=== PATIENT | female | born 2000 | race Caucasian/White ===

== ENCOUNTER 2020-05-14 17:01 | Emergency (ER) | payer OTHER ==
[2020-05-14 17:23] VITALS: RESP 18
[2020-05-14] MEDS ORDERED: ONDANSETRON 4 MG/2 ML VIAL IVP STA (18:03)
[2020-05-14] MEDS ORDERED: SODIUM CHLORIDE 0.9% 1,000 ML IV STA (18:03)
--- NOTE | 2020-05-14 18:10 | ED ---
Abdominal Pain HPI - General Chief Complaint: Abdominal Pain Stated Complaint: Abd Pain Time Seen by Provider: 05/14/20 17:34 Source: patient Mode of arrival: ambulatory Limitations: no limitations - History of Present Illness Initial Comments: 19-year-old female patient presents to the emergency department today for evaluation of right-sided abdominal pain. Patient states that symptoms started around 4:00 this morning and have been gradually worsening. States that she did take Tylenol shortly after onset which did seem to help for a short period of time. Patient states that she has been feeling very nauseated but has not yet had vomiting. Denies any diarrhea but states she has had some constipation. Denies any hematochezia or melena. She denies any fever or chills. States that she has had in the past but no other abdominal surgeries. Denies any hematuria, dysuria, urinary frequency, urinary urgency. She denies any abnormal vaginal bleeding or discharge. Patient denies any recent rash, cough, shortness of breath, chest pain, back pain, numbness, tingling, dizziness, weakness, headache, visual changes, or any other complaints. - Related Data Home Medications Medication Instructions Recorded Confirmed Pnv No.95/Ferrous Fum/Folic AC 1 each PO DAILY 09/05/19 09/05/19 [ Multivitamin Tablet] Allergies Allergy/AdvReac Type Severity Reaction Status Date / Time codeine AdvReac Hallucinati Verified 05/14/20 17:20 ons Review of Systems ROS Statement: Those systems with pertinent positive or pertinent negative responses have been documented in the HPI. ROS Other: All systems not noted in ROS Statement are negative. Past Medical History Past Medical History: No Reported History History of Any Multi-Drug Resistant Organisms: None Reported Past Surgical History: Section Past Anesthesia/Blood Transfusion Reactions: No Reported Reaction Past Psychological History: No Psychological Hx Reported Smoking Status: Never smoker Past Alcohol Use History: None Reported Past Drug Use History: None Reported - Past Family History Father Family Medical History: No Reported History General Exam Limitations: no limitations General appearance: alert, in no apparent distress, other (Physical well- developed, well-nourished adult female patient in no acute distress. Vital signs upon presentation are temperature 98.1F, pulse 105, respirations 18, blood pressure 132/89, pulse ox 99% on room air.) Eye exam: Present: normal appearance, PERRL, EOMI. Absent: scleral icterus, conjunctival injection, periorbital swelling ENT exam: Present: normal exam, normal oropharynx, mucous membranes moist Respiratory exam: Present: normal lung sounds bilaterally. Absent: respiratory distress, wheezes, rales, rhonchi, stridor Cardiovascular Exam: Present: regular rate, normal rhythm, normal heart sounds. Absent: systolic murmur, diastolic murmur, rubs, gallop, clicks GI/Abdominal exam: Present: soft, tenderness (Right mid abdomen right lower quadrant tenderness), normal bowel sounds. Absent: distended, guarding, rebound, rigid Neurological exam: Present: alert, oriented X3, CN II-XII intact Psychiatric exam: Present: normal affect, normal mood Skin exam: Present: warm, dry, intact, normal color. Absent: rash Course Vital Signs 05/14/20 05/14/20 17:20 19:53 Temperature 98.1 F Pulse Rate 105 H 83 Respiratory 18 18 Rate Blood Pressure 132/89 140/81 O2 Sat by Pulse 99 99 Oximetry Medical Decision Making - Medical Decision Making 19-year-old female patient presents to the emergency department today for evaluation of right-sided abdominal pain. Physical examination did reveal right mid and right lower quadrant abdominal tenderness. She is afebrile normal vital signs. Labs reviewed and did reveal elevated white blood cell count at 20.4. Urinalysis showed no evidence for infection. CT of the abdomen and pelvis was obtained and showed enlarged lymph nodes near the pericecal region. Appendix appeared normal. No sign for appendicitis. There is some decreased size of the left kidney and enlarged calyces which could be related to a developmental abnormality or papillary necrosis. I did discuss these findings and results with the patient. I did offer to perform pelvic exam and obtained cultures for further investigation of her symptoms. Patient declined at this time, she denies concern for STIs or PID. We did discuss mesenteric adenitis versus early appendicitis as a cause for her symptoms and lab findings. We also discussed the abnormality in her kidney. She will be discharged at this time with instructions to closely monitor for worsening symptoms including development of fever, vomiting, or worsening abdominal pain. She was also instructed to follow-up with her primary care physician for further evaluation to have repeat labs drawn to ensure reduction and white blood cell count as well as to request further investigation to her kidney abnormalities. She'll be given a starter pack for Zofran. She is instructed take Tylenol Motrin for discomfort. Return parameters were discussed in detail. She verbalizes understanding and agrees with this plan. - Lab Data Result diagrams: 05/14/20 18:23 05/14/20 18:23 Lab Results 05/14/20 05/14/20 05/14/20 Range/Units 18:23 18:23 18:23 WBC 20.4 H (4.0-11.0) k/uL RBC 5.10 (3.80-5.40) m/uL Hgb 13.3 (11.4-16.0) gm/dL Hct 40.1 (34.0-46.0) % MCV 78.6 L (80.0-100.0) fL MCH 26.2 (25.0-35.0) pg MCHC 33.3 (31.0-37.0) g/dL RDW 13.8 (11.5-15.5) % Plt Count 353 (150-450) k/uL Neutrophils % 82 % Lymphocytes % 11 % Monocytes % 5 % Eosinophils % 1 % Basophils % 0 % Neutrophils # 16.7 H (1.3-7.7) k/uL Lymphocytes # 2.3 (1.0-4.8) k/uL Monocytes # 1.0 (0-1.0) k/uL Eosinophils # 0.1 (0-0.7) k/uL Basophils # 0.1 (0-0.2) k/uL Sodium (137-145) mmol/L Potassium (3.5-5.1) mmol/L Chloride (98-107) mmol/L Carbon Dioxide (22-30) mmol/L Anion Gap mmol/L BUN (7-17) mg/dL Creatinine (0.52-1.04) mg/dL Est GFR (CKD-EPI)AfAm (>60 ml/min/1.73 sqM) Est GFR (CKD-EPI)NonAf (>60 ml/min/1.73 sqM) Glucose (74-99) mg/dL Plasma Lactic Acid Alexys (0.7-2.0) mmol/L Calcium (8.4-10.2) mg/dL Total Bilirubin (0.2-1.3) mg/dL AST (14-36) U/L ALT (4-34) U/L Alkaline Phosphatase (38-126) U/L Total Protein (6.3-8.2) g/dL Albumin (3.5-5.0) g/dL Amylase (30-110) U/L Lipase (23-300) U/L Urine Color Yellow Urine Appearance Clear (Clear) Urine pH 6.5 (5.0-8.0) Ur Specific [place] 1.029 (1.001-1.035) Urine Protein Trace H (Negative) Urine Glucose (UA) Negative (Negative) Urine Ketones Negative (Negative) Urine Blood Negative (Negative) Urine Nitrite Negative (Negative) Urine Bilirubin Negative (Negative) Urine Urobilinogen <2.0 (<2.0) mg/dL Ur Leukocyte Esterase Negative (Negative) Urine HCG, Qual Not Detected (Not Detectd) 05/14/20 05/14/20 Range/Units 18:23 18:23 WBC (4.0-11.0) k/uL RBC (3.80-5.40) m/uL Hgb (11.4-16.0) gm/dL Hct (34.0-46.0) % MCV (80.0-100.0) fL MCH (25.0-35.0) pg MCHC (31.0-37.0) g/dL RDW (11.5-15.5) % Plt Count (150-450) k/uL Neutrophils % % Lymphocytes % % Monocytes % % Eosinophils % % Basophils % % Neutrophils # (1.3-7.7) k/uL Lymphocytes # (1.0-4.8) k/uL Monocytes # (0-1.0) k/uL Eosinophils # (0-0.7) k/uL Basophils # (0-0.2) k/uL Sodium 138 (137-145) mmol/L Potassium 4.0 (3.5-5.1) mmol/L Chloride 104 (98-107) mmol/L Carbon Dioxide 25 (22-30) mmol/L Anion Gap 9 mmol/L BUN 10 (7-17) mg/dL Creatinine 0.71 (0.52-1.04) mg/dL Est GFR (CKD-EPI)AfAm >90 (>60 ml/min/1.73 sqM) Est GFR (CKD-EPI)NonAf >90 (>60 ml/min/1.73 sqM) Glucose 86 (74-99) mg/dL Plasma Lactic Acid Alexys 1.3 (0.7-2.0) mmol/L Calcium 9.2 (8.4-10.2) mg/dL Total Bilirubin 0.5 (0.2-1.3) mg/dL AST 21 (14-36) U/L ALT 17 (4-34) U/L Alkaline Phosphatase 82 (38-126) U/L Total Protein 6.9 (6.3-8.2) g/dL Albumin 4.1 (3.5-5.0) g/dL Amylase 40 (30-110) U/L Lipase 46 (23-300) U/L Urine Color Urine Appearance (Clear) Urine pH (5.0-8.0) Ur Specific [place] (1.001-1.035) Urine Protein (Negative) Urine Glucose (UA) (Negative) Urine Ketones (Negative) Urine Blood (Negative) Urine Nitrite (Negative) Urine Bilirubin (Negative) Urine Urobilinogen (<2.0) mg/dL Ur Leukocyte Esterase (Negative) Urine HCG, Qual (Not Detectd) - Radiology Data Radiology results: report reviewed, image reviewed CT abdomen and pelvis is obtained. Report was reviewed in its entirety. Impression by Dr. Pineda shows some fatty infiltration of the liver. No sign of appendicitis. Left kidney slightly smaller than the right. There are large calyces of the left kidney that could relate to some developmental abnormality. Renal papillary necrosis possible. No renal obstruction seen. Disposition Clinical Impression: Abdominal pain, Leukocytosis, Abnormal finding on diagnostic imaging of left kidney Disposition: HOME SELF-CARE Condition: Good Instructions (If sedation given, give patient instructions): Leukocytosis (ED), Abdominal Pain (ED) Additional Instructions: Take, Motrin for pain control. Take nausea medication as needed. Follow up with the primary care physician for recheck in 1-2 days. If you're pain worsens, he developed a fever, or vomiting return to the emergency department. Please follow-up with your primary care physician and have a repeat white blood cell count drawn to ensure resolution of abnormality. Also, have them evaluate the abnormality of your left kidney. Return for any other new, worsening, or concerning symptoms. Is patient prescribed a controlled substance at d/c from ED?: No Referrals: None,Stated [Primary Care Provider] - 1-2 days Time of Disposition: 20:40
[2020-05-14 18:41] LABS: Basophils # (A) 0.1 k/uL (0-0.2); Basophils % (A) 0 %; Eosinophils # (A) 0.1 k/uL (0-0.7); Eosinophils % (A) 1 %; HCT 40.1 % (34.0-46.0); HGB 13.3 gm/dL (11.4-16.0); Lymphocytes # (A) 2.3 k/uL (1.0-4.8); Lymphocytes % (A) 11 %; MCH 26.2 pg (25.0-35.0); MCHC 33.3 g/dL (31.0-37.0); MCV 78.6 fL (80.0-100.0); Mean Platelet Volume 6.6; Monocytes % (A) 5 %; Neutrophils # (A) 16.7 k/uL (1.3-7.7); Neutrophils % (A) 82 %; Platelet Count 353 k/uL (150-450); RDW 13.8 % (11.5-15.5); WBC 20.4 k/uL (4.0-11.0)
[2020-05-14 18:43] LABS: Appearance,Urine Clear (Clear); Bilirubin,Urine Negative (Negative); Blood,Urine Negative (Negative); Color,Urine Yellow; Glucose,Urine (UA) Negative (Negative); Ketones,Urine Negative (Negative); Leukocyte Esterase,Urine Negative (Negative); Nitrite,Urine Negative (Negative); PH, Urine 6.5 (5.0-8.0); Protein,Urine Trace (Negative); Specific Gravity,Urine 1.029 (1.001-1.035); Urobilinogen,Urine <2.0 mg/dL (<2.0)
[2020-05-14] MEDS ORDERED: ACETAMINOPHEN TAB 500 MG TAB PO STA (19:01)
[2020-05-14 19:05] LABS: ALT 17 U/L (4-34); AST 21 U/L (14-36); African American GFR (CKD) >90 (>60 ml/min/1.73 sqM); Albumin 4.1 g/dL (3.5-5.0); Alkaline Phosphatase 82 U/L (38-126); Amylase 40 U/L (30-110); Anion Gap 9 mmol/L; Blood Urea Nitrogen 10 mg/dL (7-17); Calcium 9.2 mg/dL (8.4-10.2); Carbon Dioxide 25 mmol/L (22-30); Chloride 104 mmol/L (98-107); Glucose 86 mg/dL (74-99); Non-African American GFR(CKD) >90 (>60 ml/min/1.73 sqM); Sodium 138 mmol/L (137-145); Total Bilirubin 0.5 mg/dL (0.2-1.3); Total Protein 6.9 g/dL (6.3-8.2)
--- NOTE | 2020-05-14 19:46 | CT ---
EXAMINATION TYPE: CT abdomen pelvis w con DATE OF EXAM: 05/14/2020 COMPARISON: None HISTORY: RLQ pain CT DLP: 1854.6 mGycm Automated exposure control for dose reduction was used. CONTRAST: Performed with IV Contrast, patient injected with 100 mL of Isovue 300. Lung bases are clear. There is no pleural effusion. Heart size is normal. There is some fatty infiltr ation of the liver. There is no pericardial effusion. Bile ducts are not dilated. Gallbladder appears normal. Spleen is intact. Stomach is intact. There is no pancreatic mass. There is no adrenal mass. Kidneys show satisfactory contrast opacification. There is no hydronephrosi s. Left kidney is smaller than the right. There is normal excretion on the delayed images. There is n o retroperitoneal adenopathy. Ureters are not dilated. Bladder distends smoothly. Uterus is anteverted. There is no inguinal hernia. There is no evidence of a pelvic mass. There is no free fluid in the pelvis. There are pericecal lymph nodes that measure up to 1 cm. Appendix is medial and is within normal limi ts. There is some air bubbles in the distal appendix. Appendix measures up to 7 mm. Lumbar vertebra have normal alignment. Disc spaces are fairly normal. There is no compression fractur e. Bony pelvis is intact. Hip joints are intact. IMPRESSION: There is some fatty infiltration of the liver. No sign of appendicitis. Left kidney slightly smaller than the right. There are large calyces of the left kidney that could relate to some developmental ab normality. Renal papillary necrosis is possible. No renal obstruction seen.
[2020-05-14] MEDS ORDERED: ONDANSETRON 4 MG ODT STARTER PACK 2 TAB BTL PO STA (20:40)
[2020-05-14 21:35] VITALS: BP 122/81; PULSE 94; TEMP 98.6
== END 2020-05-14 21:20 | disposition home or self-care (01) ==
LOC: EC 17:01
DX: R93.422 Abnormal radiologic findings on diagnostic imaging of left kidney (principal); D72.829 Elevated white blood cell count, unspecified; R10.9 Unspecified abdominal pain; R59.9 Enlarged lymph nodes, unspecified; Z88.5 Allergy status to narcotic agent; Z98.890 Other specified postprocedural states
CPT/HCPCS: 36415; 80053; 82150; 83605; 83690; 85025; 81003; 81025; 74177; 99284; 96374; 96361; J2405; S0119; Q9967

== ENCOUNTER 2021-10-06 17:03 | Emergency (ER) | payer OTHER ==
[2021-10-06 18:27] VITALS: BP 160/97; PULSE 93; RESP 20; TEMP 97.8
[2021-10-06 18:58] LABS: Appearance,Urine Clear (Clear); Bacteria,Urine Rare /hpf; Bilirubin,Urine Negative (Negative); Blood,Urine Negative (Negative); Color,Urine Colorless; Glucose,Urine (UA) Negative (Negative); Hyaline Casts,Urine 1 /lpf (0-2); Ketones,Urine Negative (Negative); Leukocyte Esterase,Urine Trace (Negative); Nitrite,Urine Negative (Negative); Protein,Urine Negative (Negative); RBC,Urine <1 /hpf (0-5); Specific Gravity,Urine 1.002 (1.001-1.035); Squamous Epithelial Cell,Urine 1 /hpf (0-4); Urobilinogen,Urine <2.0 mg/dL (<2.0); WBC,Urine 1 /hpf (0-5)
[2021-10-06 19:26] LABS: Basophils # (A) 0.1 k/uL (0-0.2); Basophils % (A) 1 %; Eosinophils # (A) 0.1 k/uL (0-0.7); Eosinophils % (A) 1 %; HCT 41.9 % (34.0-46.0); HGB 13.9 gm/dL (11.4-16.0); Lymphocytes % (A) 13 %; MCH 28.2 pg (25.0-35.0); MCHC 33.3 g/dL (31.0-37.0); MCV 84.8 fL (80.0-100.0); Mean Platelet Volume 6.6; Monocytes # (A) 0.6 k/uL (0-1.0); Monocytes % (A) 4 %; Neutrophils % (A) 81 %; Platelet Count 363 k/uL (150-450); RBC 4.94 m/uL (3.80-5.40); RDW 13.3 % (11.5-15.5)
[2021-10-06 19:35] LABS: ALT 19 U/L (4-34); AST 21 U/L (14-36); African American GFR (CKD) >90 (>60 ml/min/1.73 sqM); Albumin 4.3 g/dL (3.5-5.0); Alkaline Phosphatase 61 U/L (38-126); Anion Gap 7 mmol/L; Blood Urea Nitrogen 13 mg/dL (7-17); Calcium 9.1 mg/dL (8.4-10.2); Carbon Dioxide 25 mmol/L (22-30); Chloride 106 mmol/L (98-107); Glucose 90 mg/dL (74-99); Non-African American GFR(CKD) >90 (>60 ml/min/1.73 sqM); Potassium 4.3 mmol/L (3.5-5.1); Sodium 138 mmol/L (137-145); Total Bilirubin 0.4 mg/dL (0.2-1.3); Total Protein 7.4 g/dL (6.3-8.2)
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
== END 2021-10-06 21:53 | disposition home or self-care (01) ==
LOC: EC 17:03
DX: S30.811A Abrasion of abdominal wall, initial encounter (principal); M25.512 Pain in left shoulder; R07.2 Precordial pain; Z88.5 Allergy status to narcotic agent; V43.52XA Car driver injured in collision with other type car in traffic accident, initial encounter; Y92.410 Unspecified street and highway as the place of occurrence of the external cause
CPT/HCPCS: 36415; 71046; 80053; 81001; 81025; 84484; 85025; 93005; 99284

== ENCOUNTER → 2021-11-24 | Outpatient (CLI) | payer OTHER ==
--- NOTE | 2021-11-24 16:05 | US ---
EXAMINATION TYPE: Transabdominal DATE OF EXAM: 11/24/2021 3:21 PM COMPARISON: NONE CLINICAL HISTORY: Z36.87 UNCERTAIN LMP. Confirm Dates EXAM PERFORMED: Transabdominal (TA) EXAM MEASUREMENTS: GESTATIONAL AGE / DATING Physician Established: (9 weeks/5 days) EDC: 06/24/2022 Dates by LMP: (9 weeks/5 days) EDC: 06/24/2022 Dates by First Scan: No previous this is first scan Dates by Current Scan for: (10 weeks/0 days) EDC: 06/22/2022 MATERNAL ANATOMY Uterus: 15.9 x 7.7 x 8.2 cm Right Ovary: 2.8 x 2.3 x 1.4 Left Ovary: 3.4 x 3.7 x 2.8 Post CDS / Adnexa: wnl Presence of free fluid: No Presence of corpus luteal cyst: Left Ovary= 2.2 x 1.8 x 1.9 cm Presence of subchorionic bleed: No GESTATION / SURVEY CRL: 3.0 cm (10 weeks/0 days) MSD: wnl Yolk Sac (normal less than 6mm): 5mm Heart Rate: 165 bpm Rhythm: Normal IUP: Viable IUP Date of LMP: 09/17/2021 Single, viable IUP/ No abnormality visualized at this time IMPRESSION: 1. Single intrauterine gestation estimated at 10 weeks 0 days gestation based on crown-rump length. C ardiac activity measures 165 bpm.
== END | disposition home or self-care (01) ==
LOC: RADUSWWP 14:55
PROVIDERS: ATTEND Obstetrics & Gynecology Obstetrics
DX: Z36.87 Encounter for antenatal screening for uncertain dates (principal); Z3A.10 10 weeks gestation of pregnancy
CPT/HCPCS: 76801

== ENCOUNTER 2022-06-09 15:57 | Outpatient (CLI) | payer OTHER ==
[2022-06-09 16:40] VITALS: BP 131/81; PULSE 99; RESP 17; TEMP 98.1
== END 2022-06-09 16:38 | disposition home or self-care (01) ==
LOC: FBPOP 15:57
PROVIDERS: ATTEND Obstetrics & Gynecology Obstetrics
DX: Z36.89 Encounter for other specified antenatal screening (principal); O36.8130 Decreased fetal movements, third trimester, not applicable or unspecified; Z3A.37 37 weeks gestation of pregnancy; Z88.5 Allergy status to narcotic agent
CPT/HCPCS: 59025; G0463; 99213

== ENCOUNTER 2022-06-17 10:02 | Inpatient (IN) | payer OTHER ==
[~2022-06-17 10:02] MED LIST: CITRIC ACID-SODIUM CITRATE 15 ML CUP PO ONE
[2022-06-17] MEDS: LACTATED RINGERS 1,000 ML IV SCH ×4 (10:53→20:12)
[2022-06-17 10:58] LABS: Basophils % (A) 0 %; Eosinophils % (A) 0 %; HCT 34.8 % (34.0-46.0); HGB 11.7 gm/dL (11.4-16.0); Lymphocytes # (A) 1.6 k/uL (1.0-4.8); Lymphocytes % (A) 12 %; MCH 27.6 pg (25.0-35.0); MCHC 33.6 g/dL (31.0-37.0); MCV 82.1 fL (80.0-100.0); Mean Platelet Volume 7.9; Monocytes # (A) 0.5 k/uL (0-1.0); Monocytes % (A) 4 %; Neutrophils # (A) 10.3 k/uL (1.3-7.7); Neutrophils % (A) 82 %; Platelet Count 248 k/uL (150-450); RBC 4.23 m/uL (3.80-5.40); RDW 13.6 % (11.5-15.5); WBC 12.6 k/uL (3.8-10.6)
--- NOTE | 2022-06-17 11:22 | P.HPOB ---
History of Present Illness H&P Date: 06/17/22 Chief Complaint: IUP at 39-0/7 weeks, history of 1 desires repeat This is a 22-year-old at 39 0/7 weeks, estimated due date of 06/24. Patient has a history of a prior and desires repeat. Patient has been receiving routine care which has been essentially uncomplicated. Patient is a known blood type of O+, rubella status immune, B surface antigen negative, HIV negative, RPR nonreactive, group beta strep cultures are negative. Patient does note good movement denies contractions loss of fluid or vaginal bleeding. Review of Systems Constitutional: Denies chills, Denies fatigue, Denies fever Ears, nose, mouth and throat: Denies headache Cardiovascular: Reports leg edema Respiratory: Denies dyspnea Gastrointestinal: Denies constipation, Denies diarrhea, Denies nausea, Denies vomiting Genitourinary: Reports Past Medical History Past Medical History: No Reported History History of Any Multi-Drug Resistant Organisms: None Reported Past Surgical History: Section Past Anesthesia/Blood Transfusion Reactions: No Reported Reaction Smoking Status: Never smoker - Past Family History Father Family Medical History: No Reported History Medications and Allergies Home Medications Medication Instructions Recorded Confirmed Type Pnv No.95/Ferrous Fum/Folic AC 1 each PO DAILY 09/05/19 06/17/22 History [ Multivitamin Tablet] Allergies Allergy/AdvReac Type Severity Reaction Status Date / Time codeine AdvReac Hallucinati Verified 06/09/22 16:15 ons Exam Osteopathic Statement: *. No significant issues noted on an osteopathic structural exam other than those noted in the History and Physical/Consult. 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 Cervical exam is deferred Results Result Diagrams: 06/17/22 10:53 Abnormal Lab Results - Last 24 Hours (Table) 06/17/22 Range/Units 10:53 WBC 12.6 H (3.8-10.6) k/uL Neutrophils # 10.3 H (1.3-7.7) k/uL Assessment and Plan (1) Term Current Visit: Yes Status: Acute Code(s): Z34.90 - ENCNTR FOR SUPRVSN OF NORMAL , UNSP, UNSP TRIMESTER SNOMED Code(s): 00094338 (2) H/O section Current Visit: Yes Status: Acute Code(s): Z98.891 - HISTORY OF UTERINE SCAR FROM PREVIOUS SURGERY SNOMED Code(s): 607490655 Plan: Grade 2-year-old at 39-0/7 weeks presents for repeat section. Patient was counseled on surgery. All questions are answered. Surgical risks are reviewed including but limited to infection, bleeding, damage to bladder, bowel, ureteric or injury. Patient states understanding. We'll proceed to the operating suite for scheduled repeat section.
[2022-06-17] MEDS ORDERED: OXYTOCIN 10 UNIT/ML 1 ML VIAL ONE (11:40)
[2022-06-17] MEDS ORDERED: MORPHINE SULFATE (PF) 0.3 MG/0.3 ML SYR ONE (11:40)
[2022-06-17] MEDS ORDERED: NALBUPHINE 10 MG/ML (1 ML AMP) ONE (11:40)
[2022-06-17] MEDS ORDERED: OXYTOCIN 30 UNITS/500 ML NS BAG IV ONE (11:40)
[2022-06-17] MEDS ORDERED: ONDANSETRON 4 MG/2 ML VIAL ONE (11:40)
--- NOTE | 2022-06-17 12:34 | P.OP ---
Date of Procedure: 06/17/22 Preoperative Diagnosis: IUP at 39 weeks, history of 1, desires repeat Postoperative Diagnosis: Same Procedure(s) Performed: Repeat section Anesthesia: spinal Surgeon: Kaylin Tate Hand Cloth Folder #1: Mari Huston Estimated Blood Loss (ml): 472 IV fluids (ml): 700 Urine output (ml): 250 Pathology: none sent Condition: stable Disposition: observation Indications for Procedure: History of 1, desires repeat Operative Findings: Arcuate uterus appreciated normal ovaries bilaterally. Viable female infant delivered at 1205, weight of 7 lbs. 14 oz., Apgars of 8 and 9 at one and 5 minutes respectively. Description of Procedure: Patient was taken back to the operating suite where spinal anesthesia was found be adequate. She was prepped and draped in normal sterile fashion in the dorsal supine position. Morin catheter was placed under sterile technique. A Pfannenstiel skin incision was made the scalpel and carried through the underlying layer of fascia. The fascia was incised in the midline and the incision was extended laterally. The superior aspect of the fascial incision was then grasped elle clamps, elevated and underlying rectus muscles dissected off sharply. The inferior aspect of the fascial incision was then grasped elle clamps, elevated and underlying rectus muscles dissected off sharply. The rectus muscles were in the midline the peritoneum was identified and entered. Bladder blade was then inserted into the pelvis. The vesicouterine peritoneum was identified and a bladder flap was created using sharp and blunt dissection. The bladder blade was then reinserted the pelvis. Hysterotomy incision was made with the scalpel amniotomy revealed clear fluid. The was encountered in a vertex presentation. The infant was delivered in the usual fashion the umbilical cords doubly clamped and cut. was handed off to awaiting RN. Sponge 80s cry was noted at . Cord blood was then taken. The placenta was then delivered manually intact with a three-vessel cord being noted. Uterus swept of any remaining membranes. The uterine incision was closed with 0 Vicryl in a running locked fashion a second inverting suture was performed. Hemostasis was appreciated. The uterus was returned to the abdomen. The gutters were cleared of all clots and debris. The uterine incision was inspected and hemostasis was appreciated. The rectus muscles were inspected and any points of bleeding were made hemostatic with the Bovie. The fascia was then closed with 0 Vicryl in a running fashion from one lateral edge the midline and the other lateral edge the midline. The subcutaneous tissue was irrigated and any points of bleeding were made hemostatic with Bovie. Subcutaneous tissue was closed with 3-0 Vicryl in a running fashion. Skin was then closed with 4-0 Vicryl in a subcuticular fashion. All counts were noted correct 2 at the end of the procedure. Patient and infant tolerated delivery well and are resting comfortably.
[2022-06-17] MEDS ORDERED: ONDANSETRON 4 MG/2 ML VIAL IVP PRN (13:40)
[2022-06-17] MEDS ORDERED: diphenhydrAMINE 50 MG/ML 1 ML VIAL IVP PRN ×2 (13:40)
[2022-06-17] MEDS ORDERED: METOCLOPRAMIDE 5 MG/ML 2 ML VIAL IVP PRN (13:40)
[2022-06-17] MEDS ORDERED: SIMETHICONE 80 MG CHEWABLE PO PRN (13:40)
[2022-06-17] MEDS ORDERED: diphenhydrAMINE 50 MG CAP PO PRN (13:40)
[2022-06-17] MEDS ORDERED: diphenhydrAMINE 25 MG CAP PO PRN (13:40)
[2022-06-17] MEDS ORDERED: NALOXONE 0.4 MG/ML 1 ML VIAL IV PRN (13:40)
[2022-06-17] MEDS: ACETAMINOPHEN IV (For NPO) 1,000 MG in EMPTY BAG 1 BAG IVPB SCH (14:00)
[2022-06-17] MEDS ORDERED: IBUPROFEN IV 800 MG in SODIUM CHLORIDE 0.9% 250 ML IV PRN (19:00)
[2022-06-17] MEDS: SENNOSIDES-DOCUSATE SODIUM 1 EACH TAB PO SCH (20:11)
[2022-06-18] MEDS: ACETAMINOPHEN IV (For NPO) 1,000 MG in EMPTY BAG 1 BAG IVPB SCH (00:05)
[2022-06-18] MEDS: IBUPROFEN 600 MG TAB PO SCH ×4 (01:16→19:09)
[2022-06-18] MEDS: ACETAMINOPHEN TAB 500 MG TAB PO SCH ×4 (03:00→22:03)
[2022-06-18 07:35] LABS: Basophils % (A) 0 %; Eosinophils % (A) 0 %; HCT 31.8 % (34.0-46.0); HGB 10.7 gm/dL (11.4-16.0); Hypochromasia Slight; Lymphocytes # (A) 2.3 k/uL (1.0-4.8); Lymphocytes % (A) 16 %; MCHC 33.7 g/dL (31.0-37.0); MCV 83.3 fL (80.0-100.0); Mean Platelet Volume 7.9; Monocytes # (A) 0.8 k/uL (0-1.0); Monocytes % (A) 5 %; Neutrophils % (A) 77 %; Platelet Count 219 k/uL (150-450); RBC 3.82 m/uL (3.80-5.40); RDW 13.7 % (11.5-15.5); WBC 14.4 k/uL (3.8-10.6)
--- NOTE | 2022-06-18 08:40 | P.PNOBGPC ---
Subjective - Subjective Principal diagnosis: Postop day 1, repeat section Interval history: Patient is doing well postoperatively. She is ambulating and voiding without difficulty. She is tolerating a regular diet without nausea or vomiting. She states her pain is well-controlled. She denies concerns Patient reports: Reports appetite normal, Reports voiding normally, Reports pain well controlled, Reports ambulating normally [place]: doing well, nursing well Objective - Vital Signs Latest vital signs: Vital Signs Temp Pulse Resp BP Pulse Ox 06/18/22 07:52 98.1 F 81 16 126/81 98 06/18/22 04:00 98.4 F 87 16 134/79 97 06/18/22 00:00 98.2 F 72 16 130/76 97 06/17/22 20:00 98.7 F 70 16 128/75 98 06/17/22 16:00 98.3 F 89 16 136/56 98 06/17/22 14:35 97.7 F 81 16 118/78 98 06/17/22 14:05 78 16 112/59 100 06/17/22 13:35 73 16 114/62 97 06/17/22 13:20 58 L 16 117/63 98 06/17/22 13:05 73 16 114/62 97 06/17/22 12:50 86 16 115/56 98 06/17/22 12:35 96.2 F L 77 16 91/50 96 06/17/22 10:21 97.2 F L 98 16 124/79 98 Intake and Output 06/17/22 06/18/22 06/18/22 22:59 06:59 14:59 Output Total 150 1750 Balance -150 -1750 Output: Urine 150 1750 Other: # Voids 0 2 # Emeses 1 - Exam Extremities: Present: normal, edema Abdomen: Present: normal appearance, soft Incision: Present: normal, dry, intact Uterus: Present: normal, firm - Labs Labs: Abnormal Lab Results - Last 24 Hours (Table) 06/17/22 06/18/22 Range/Units 10:53 06:48 WBC 12.6 H 14.4 H (3.8-10.6) k/uL Hgb 10.7 L (11.4-16.0) gm/dL Hct 31.8 L (34.0-46.0) % Neutrophils # 10.3 H 11.0 H (1.3-7.7) k/uL Assessment and Plan (1) Term Current Visit: Yes Status: Acute Code(s): Z34.90 - ENCNTR FOR SUPRVSN OF NORMAL , UNSP, UNSP TRIMESTER SNOMED Code(s): 09856337 (2) H/O section Current Visit: Yes Status: Acute Code(s): Z98.891 - HISTORY OF UTERINE SCAR FROM PREVIOUS SURGERY SNOMED Code(s): 479815733 (3) S/P section Current Visit: No Status: Acute Code(s): Z98.891 - HISTORY OF UTERINE SCAR FROM PREVIOUS SURGERY SNOMED Code(s): 844791453 Plan: 22-year-old G2 now P2 status post repeat section. Patient is doing well postoperatively. We'll continue routine postoperative care
[2022-06-18] MEDS: SENNOSIDES-DOCUSATE SODIUM 1 EACH TAB PO SCH ×2 (08:54→22:03)
--- NOTE | 2022-06-18 09:58 | P.PN ---
Progress Note - Text Date: 06/18/2022 Time:: The patient is status post section Vital signs stable VAS: 0-10 Patient has no complaints of pain. The patient incurred some minimal itching yesterday, this itching is now subsiding. Pain meds to be managed by service.
[2022-06-18] MEDS: PRENATAL VIT-IRON-FOLIC ACID 1 EACH TABLET PO SCH (15:06)
[2022-06-19] MEDS: LACTATED RINGERS 1,000 ML IV SCH (05:33)
[2022-06-19] MEDS: IBUPROFEN 600 MG TAB PO SCH ×4 (07:04→21:46)
[2022-06-19] MEDS: ACETAMINOPHEN TAB 500 MG TAB PO SCH ×4 (09:21→21:55)
[2022-06-19] MEDS: SENNOSIDES-DOCUSATE SODIUM 1 EACH TAB PO SCH ×2 (09:24→21:46)
--- NOTE | 2022-06-19 10:06 | P.PNOBGPC ---
Subjective - Subjective Principal diagnosis: Postoperative day #2, repeat section Interval history: Patient is doing well postoperatively. She is ambulating and voiding without difficulty. States her lochia is minimal. She denies concerns. She is tolerating a regular diet without nausea or vomiting. She is pumping as her is in the nursery on phototherapy. Patient reports: Reports appetite normal, Reports voiding normally, Reports pain well controlled, Reports ambulating normally [place]: doing well (On phototherapy in the nursery) Objective - Vital Signs Latest vital signs: Vital Signs Temp Pulse Resp BP Pulse Ox 06/19/22 08:00 98.3 F 64 15 152/95 99 06/19/22 00:00 98.1 F 75 15 135/76 97 06/18/22 20:00 84 06/18/22 15:21 98.0 F 84 15 139/85 97 06/18/22 12:00 97.6 F 88 16 128/79 98 Intake and Output 06/18/22 06/19/22 06/19/22 22:59 06:59 14:59 Intake Total 960 Balance 960 Intake: Oral 960 Other: Voiding Method Toilet Toilet # Voids 1 1 - Exam Extremities: Present: normal, edema Abdomen: Present: normal appearance, soft Incision: Present: normal, dry, intact Uterus: Present: normal, firm Assessment and Plan (1) Term Current Visit: Yes Status: Acute Code(s): Z34.90 - ENCNTR FOR SUPRVSN OF NORMAL , UNSP, UNSP TRIMESTER SNOMED Code(s): 70937692 (2) H/O section Current Visit: Yes Status: Acute Code(s): Z98.891 - HISTORY OF UTERINE SCAR FROM PREVIOUS SURGERY SNOMED Code(s): 442275194 (3) S/P section Current Visit: No Status: Acute Code(s): Z98.891 - HISTORY OF UTERINE SCAR FROM PREVIOUS SURGERY SNOMED Code(s): 156481362 Plan: Patient is doing well postoperatively, she would like to stay additional days as her remains in the nursery on phototherapy. Plan to continue routine postoperative care.
[2022-06-19] MEDS: PRENATAL VIT-IRON-FOLIC ACID 1 EACH TABLET PO SCH (12:04)
[2022-06-19 14:40] LABS: Basophils # (A) 0.1 k/uL (0-0.2); Basophils % (A) 0 %; Eosinophils # (A) 0.3 k/uL (0-0.7); Eosinophils % (A) 2 %; HCT 33.2 % (34.0-46.0); HGB 11.2 gm/dL (11.4-16.0); Hypochromasia Slight; Lymphocytes # (A) 2.2 k/uL (1.0-4.8); Lymphocytes % (A) 16 %; MCHC 33.8 g/dL (31.0-37.0); MCV 82.9 fL (80.0-100.0); Mean Platelet Volume 7.9; Monocytes # (A) 0.7 k/uL (0-1.0); Monocytes % (A) 5 %; Neutrophils # (A) 10.4 k/uL (1.3-7.7); Neutrophils % (A) 76 %; Platelet Count 273 k/uL (150-450); RDW 13.7 % (11.5-15.5); WBC 13.7 k/uL (3.8-10.6)
[2022-06-19 14:50] LABS: ALT 13 U/L (4-34); AST 21 U/L (14-36); African American GFR (CKD) >90 (>60 ml/min/1.73 sqM); Blood Urea Nitrogen 9 mg/dL (7-17); LDH 498 U/L (313-618); Non-African American GFR(CKD) >90 (>60 ml/min/1.73 sqM); Uric Acid 4.5 mg/dL (3.7-7.4)
[2022-06-20] MEDS: IBUPROFEN 600 MG TAB PO SCH ×4 (01:07→21:05)
[2022-06-20] MEDS: ACETAMINOPHEN TAB 500 MG TAB PO SCH ×4 (04:08→23:44)
[2022-06-20] MEDS: SENNOSIDES-DOCUSATE SODIUM 1 EACH TAB PO SCH ×2 (08:53→21:05)
--- NOTE | 2022-06-20 10:25 | P.PNOBGPC ---
Subjective - Subjective Patient reports: Reports appetite normal, Reports voiding normally, Reports pain well controlled, Reports ambulating normally : doing well, in NICU (treatment for elevated bilirubin.) Objective - Vital Signs Latest vital signs: Vital Signs Temp Pulse Resp BP Pulse Ox 06/20/22 08:00 98.0 F 78 18 136/82 97 06/19/22 23:22 97.7 F 83 18 131/80 97 06/19/22 16:21 97.9 F 85 143/84 97 06/19/22 13:00 156/91 - Exam Extremities: Present: normal, edema Abdomen: Present: normal appearance, soft. Absent: distention, tenderness Incision: Present: normal, dry, intact Uterus: Present: normal, firm (the uterine fundus as tonic and minimally tender below the umbilicus.) - Labs Labs: Abnormal Lab Results - Last 24 Hours (Table) 06/19/22 Range/Units 14:27 WBC 13.7 H (3.8-10.6) k/uL Hgb 11.2 L (11.4-16.0) gm/dL Hct 33.2 L (34.0-46.0) % Neutrophils # 10.4 H (1.3-7.7) k/uL Assessment and Plan (1) S/P section Current Visit: No Status: Acute Code(s): Z98.891 - HISTORY OF UTERINE SCAR FROM PREVIOUS SURGERY SNOMED Code(s): 214098460 Plan: continue routine postoperative care. The patient will remain in hospital secondary to the 's ongoing treatment for elevated bilirubin and will likely be discharged tomorrow morning. I have encouraged her to continue to walk in the hallways routinely.
[2022-06-20] MEDS: PRENATAL VIT-IRON-FOLIC ACID 1 EACH TABLET PO SCH (12:34)
[2022-06-21] MEDS: IBUPROFEN 600 MG TAB PO SCH ×3 (04:22→15:49)
[2022-06-21] MEDS: ACETAMINOPHEN TAB 500 MG TAB PO SCH ×3 (04:23→13:22)
[2022-06-21] MEDS: PRENATAL VIT-IRON-FOLIC ACID 1 EACH TABLET PO SCH (08:17)
[2022-06-21] MEDS: SENNOSIDES-DOCUSATE SODIUM 1 EACH TAB PO SCH (08:17)
[2022-06-21 09:58] VITALS: BP 106/70; PULSE 64; RESP 18; TEMP 98.1
--- NOTE | 2022-06-21 11:32 | P.DS ---
Providers Date of admission: 06/17/22 10:02 Expected date of discharge: 06/21/22 Attending physician: Kaylin Tate Primary care physician: Stated None - Discharge Diagnosis(es) (1) S/P section Current Visit: No Status: Acute Hospital Course: the patient is a 22-year-old 2 para 1001 admitted at 39-0/7 weeks for repeat low transverse section having undergone a prior for arrest of dilation and descent. Her was essentially uncomplicated and group B strep status was negative. She was taken the operating room where she was delivered of a viable 7 lbs. 14 oz. baby girl with Apgars of 8 at 1 minute and 9 at 5 minutes. The patient's and postoperative course was unremarkable with vital signs being stable and her temperature was afebrile throughout. The infant, however, required significant phototherapy for elevated bilirubin and remains in the nursery today which is postoperative and day #4. The patient was deemed stable for discharge on and postoperative day #4 was discharged home to follow-up in the office in 2 weeks for an incision check and 6 weeks routinely. Discharge instructions included calling for any significantly increased bleeding or foul-smelling lochia, significantly increased fever or abdominal pain, perineal complaints, breast complaints, incisional complaints, or anything else that concerned her. She was additionally instructed to have nothing in the vagina for at least 6 weeks time to include intercourse. She was instructed to do no heavy lifting over the same period of time. She was last instructed to do no driving until off of all pain medications or 2 weeks' time, whichever came first. She understood her instructions and agrees to follow up as noted above. Discharge medications included continued vitamins as she has opted to breast-feed. And she is using only [id number] analgesic pain medications. Maternal blood type is O+ and rubella status is immune. Discharge hemoglobin and hematocrit were 11.2 and 33.2 respectively. Procedures: #1. Repeat low transverse section Patient Condition at Discharge: Stable Plan - Discharge Summary New Discharge Prescriptions: No Action Pnv No.95/Ferrous Fum/Folic AC [ Multivitamin Tablet] 1 each PO DAILY Discharge Medication List Pnv No.95/Ferrous Fum/Folic AC [ Multivitamin Tablet] 1 each PO DAILY 09/05/19 [History] Follow up Appointment(s)/Referral(s): Kaylin Tate DO [Doctor of Osteopathic Medicine] - 2 Weeks Discharge Disposition: HOME SELF-CARE
== END 2022-06-21 15:55 | disposition home or self-care (01) | DRG 788 ==
LOC: 4FBP 10:02
PROVIDERS: ADMIT Obstetrics & Gynecology Obstetrics; ATTEND Obstetrics & Gynecology Obstetrics
PROC: 4A0HXCZ Measurement of Products of Conception, Cardiac Rate, External Approach (ICD-10-PCS; 2022-06-17)
PROC: 10D00Z1 Extraction of Products of Conception, Low, Open Approach (ICD-10-PCS; principal; 2022-06-17 11:58)
DX: O34.211 Maternal care for low transverse scar from previous cesarean delivery (principal); Z88.5 Allergy status to narcotic agent; O99.73 Diseases of the skin and subcutaneous tissue complicating the puerperium; O34.03 Maternal care for unspecified congenital malformation of uterus, third trimester; L29.9 Pruritus, unspecified; Q51.810 Arcuate uterus; Z37.0 Single live birth; Z3A.39 39 weeks gestation of pregnancy
CPT/HCPCS: 82565; 83615; 84450; 84460; 84520; 84550; 85025; 86850; 86900; 86901